=== PATIENT | male | born 1985 | race Caucasian/White ===

== ENCOUNTER 2016-06-22 17:47 | Emergency (ER) | payer SELFPAY ==
--- NOTE | 2016-06-30 11:03 | ER ---
ADMIT: 06/22/2016 RM/LOC: ER [facility] MR#: [id number] [id number] [place] [address] Emergency Room Report SEX: M AGE: 31 : 1985 DATE: 06/22/2016 ADDENDUM: CHIEF COMPLAINT: Laceration. HISTORY OF PRESENT ILLNESS: This is a 31-year-old, who was sharpening the end of a stick and he cut the distal portion of his right leg. Suture repair was done here in the emergency room. Please see the T-sheet for the information. Discharging him home, told him to keep the sutures in for 10 to 14 days, keep the area clean and dry, limit his activity for the next couple days, and follow up with the primary care physician again in 10 to 14 days for suture removal. PAOLO Braxton / Aaron Forde MD / modl JOB #: [id number] CC: Aaron Forde MD, Attending Physician Deejay Castaneda MD, Family Physician
== END 2016-06-22 19:20 | disposition home or self-care (01) ==
LOC: ER 17:47
PROC: 0HQKXZZ Repair Right Lower Leg Skin, External Approach (ICD-10-PCS; principal; 2016-06-22)
DX: S81.811A Laceration without foreign body, right lower leg, initial encounter (principal); I10 Essential (primary) hypertension; F17.210 Nicotine dependence, cigarettes, uncomplicated; F32.9 Major depressive disorder, single episode, unspecified; Z79.899 Other long term (current) drug therapy; W26.0XXA Contact with knife, initial encounter